=== PATIENT | male | born 1950 | race Caucasian/White ===

== ENCOUNTER 2016-02-24 15:17 | Emergency (ER) | payer MEDICARE ==
[2016-02-24 15:39] VITALS: RESP 18
[2016-02-24] MEDS ORDERED: SODIUM CHLORIDE 0.9% 1,000 ML IV ONE (15:57)
--- NOTE | 2016-02-24 16:02 | ED ---
General Adult HPI - General Chief complaint: Altered Mental Status Stated complaint: HYPERTENSION Time Seen by Provider: 02/24/16 15:35 Source: patient, RN notes reviewed Mode of arrival: EMS Limitations: no limitations - History of Present Illness Initial comments: This is a 66-year-old male has a past medical history significant for high blood pressure. Patient states he donated blood about 1 week ago and usually feels under the weather for a few days but he felt okay this morning so for the first time in 8 years she went for a bike ride with a group of people and went 8 miles up and down hills. Patient states when he got home he started having a couple coffee and called some of his relative to wish to my have been year. Patient states when he called his daughter he was unable to remember what he did on or his birthday which was on the . Patient states he felt as though he lost a few weeks and he was unable to even remember some a simple things EMS metal riveter told him to return member. Patient states once he got here and some oxygen and resting he remembers everything his birthday even the questions EMS asked him. Patient states he does still feel little bit tired but feels much better than he did earlier. She denies any recent fever chills or cough. Patient denies headache patient denies numbness weakness. Patient denies chest pain palpitations difficulty breathing or shortness of breath per patient denies abdominal pain patient denies nausea vomiting diarrhea. - Related Data Home Medications Medication Instructions Recorded Confirmed Lisinopril [Zestril] 20 mg PO DAILY 02/24/16 02/24/16 Multivitamins, Thera [Multivitamin] 1 tab PO DAILY 02/24/16 02/24/16 Allergies Allergy/AdvReac Type Severity Reaction Status Date / Time No Known Allergies Allergy Verified 02/24/16 15:45 Review of Systems ROS Statement: Those systems with pertinent positive or pertinent negative responses have been documented in the HPI. ROS Other: All systems not noted in ROS Statement are negative. Past Medical History Past Medical History: Hypertension Additional Past Medical History / Comment(s): Shingles History of Any Multi-Drug Resistant Organisms: None Reported Past Surgical History: No Surgical Hx Reported Past Psychological History: No Psychological Hx Reported Smoking Status: Former smoker Past Alcohol Use History: Occasional Past Drug Use History: None Reported General Exam - General Exam Comments Initial Comments: GENERAL: Patient is well-developed and well-nourished. Patient is nontoxic and well- hydrated and is in no acute distress. ENT: Neck is soft and supple. No significant lymphadenopathy is noted. Oropharynx is clear. Moist mucous membranes. Neck has full range of motion without eliciting any pain. EYES: The sclera were anicteric and conjunctiva were pink and moist. Extraocular movements were intact and pupils were equal round and reactive to light. Eyelids were unremarkable. PULMONARY: Unlabored respirations. Good breath sounds bilaterally. No audible rales rhonchi or wheezing was noted. CARDIOVASCULAR: There is a regular rate and rhythm without any murmurs gallops or rubs. ABDOMEN: Soft and nontender with normal bowel sounds. No palpable organomegaly was noted. There is no palpable pulsatile mass. SKIN: Skin is clear with no lesions or rashes and otherwise unremarkable. NEUROLOGIC: Patient is alert and oriented x3. Cranial nerves II through XII are grossly intact. Motor and sensory are also intact. Normal speech, volume and content. Symmetrical smile. MUSCULOSKELETAL: Normal extremities with adequate strength and full range of motion. No lower extremity swelling or edema. No calf tenderness. LYMPHATICS: No significant lymphadenopathy is noted PSYCHIATRIC: Normal psychiatric evaluation. Normal interpersonal interactions appears functionally intact in deals appropriately with others. No signs of depression. No signs of anxiety. Limitations: no limitations Course Vital Signs 02/24/16 02/24/16 02/24/16 15:36 16:18 17:13 Temperature 97.7 F Pulse Rate 97 81 77 Respiratory 18 18 18 Rate Blood Pressure 183/87 146/69 146/72 O2 Sat by Pulse 98 99 99 Oximetry 02/24/16 18:09 Temperature Pulse Rate 80 Respiratory 18 Rate Blood Pressure 153/76 O2 Sat by Pulse 99 Oximetry Medical Decision Making - Medical Decision Making EKG shows normal sinus rhythm at 71 bpm. On a 38 QRS is 76 QT interval 370 QTC is 410. Patient's EKG shows no ST segment elevation or depression or T-wave abnormality is noted. Patient back to his normal baseline he is able to and that without problems remember all events clearly. I spoke with the patient about following up his family doctor he stated that he would and he did not want to be kept in the hospital overnight. - Lab Data Result diagrams: 02/24/16 15:44 01/01/17 15:44 Lab Results 02/24/16 02/24/16 02/24/16 Range/Units 15:44 15:44 15:44 WBC 11.2 H (3.8-10.6) k/uL RBC 4.49 (4.30-5.90) m/uL Hgb 12.1 L (13.0-17.5) gm/dL Hct 39.9 (39.0-53.0) % MCV 89.0 (80.0-100.0) fL MCH 26.9 (25.0-35.0) pg MCHC 30.2 L (31.0-37.0) g/dL RDW 15.1 (11.5-15.5) % Plt Count 217 (150-450) k/uL Neutrophils % 84 % Lymphocytes % 8 % Monocytes % 6 % Eosinophils % 0 % Basophils % 0 % Neutrophils # 9.3 H (1.3-7.7) k/uL Lymphocytes # 0.9 L (1.0-4.8) k/uL Monocytes # 0.7 (0-1.0) k/uL Eosinophils # 0.0 (0-0.7) k/uL Basophils # 0.1 (0-0.2) k/uL PT (9.0-12.0) sec INR (<1.1) APTT (22.0-30.0) sec Sodium 142 (137-145) mmol/L Potassium 5.0 (3.5-5.1) mmol/L Chloride 107 (98-107) mmol/L Carbon Dioxide 23 (22-30) mmol/L Anion Gap 12 mmol/L BUN 16 (9-20) mg/dL Creatinine 1.05 (0.66-1.25) mg/dL Est GFR (MDRD) Af Amer >60 (>60 ml/min/1.73 sqM) Est GFR (MDRD) Non-Af >60 (>60 ml/min/1.73 sqM) Glucose 92 (74-99) mg/dL Calcium 9.7 (8.4-10.2) mg/dL Total Bilirubin 0.5 (0.2-1.3) mg/dL AST 33 (17-59) U/L ALT 45 (21-72) U/L Alkaline Phosphatase 59 (38-126) U/L Total Creatine Kinase 354 H (55-170) U/L CK-MB (CK-2) 4.7 H* (0.0-2.4) ng/mL CK-MB (CK-2) Rel Index 1.3 Troponin I 0.025 (0.000-0.034) ng/mL Total Protein 7.4 (6.3-8.2) g/dL Albumin 4.2 (3.5-5.0) g/dL Urine Color Urine Appearance (Clear) Urine pH (5.0-8.0) Ur Specific [place] (1.001-1.035) Urine Protein (Negative) Urine Glucose (UA) (Negative) Urine Ketones (Negative) Urine Blood (Negative) Urine Nitrate (Negative) Urine Bilirubin (Negative) Urine Urobilinogen (<2.0) mg/dL Ur Leukocyte Esterase (Negative) 02/24/16 02/24/16 Range/Units 15:44 18:42 WBC (3.8-10.6) k/uL RBC (4.30-5.90) m/uL Hgb (13.0-17.5) gm/dL Hct (39.0-53.0) % MCV (80.0-100.0) fL MCH (25.0-35.0) pg MCHC (31.0-37.0) g/dL RDW (11.5-15.5) % Plt Count (150-450) k/uL Neutrophils % % Lymphocytes % % Monocytes % % Eosinophils % % Basophils % % Neutrophils # (1.3-7.7) k/uL Lymphocytes # (1.0-4.8) k/uL Monocytes # (0-1.0) k/uL Eosinophils # (0-0.7) k/uL Basophils # (0-0.2) k/uL PT 10.5 (9.0-12.0) sec INR 1.0 (<1.1) APTT 21.9 L (22.0-30.0) sec Sodium (137-145) mmol/L Potassium (3.5-5.1) mmol/L Chloride (98-107) mmol/L Carbon Dioxide (22-30) mmol/L Anion Gap mmol/L BUN (9-20) mg/dL Creatinine (0.66-1.25) mg/dL Est GFR (MDRD) Af Amer (>60 ml/min/1.73 sqM) Est GFR (MDRD) Non-Af (>60 ml/min/1.73 sqM) Glucose (74-99) mg/dL Calcium (8.4-10.2) mg/dL Total Bilirubin (0.2-1.3) mg/dL AST (17-59) U/L ALT (21-72) U/L Alkaline Phosphatase (38-126) U/L Total Creatine Kinase (55-170) U/L CK-MB (CK-2) (0.0-2.4) ng/mL CK-MB (CK-2) Rel Index Troponin I (0.000-0.034) ng/mL Total Protein (6.3-8.2) g/dL Albumin (3.5-5.0) g/dL Urine Color Light Yellow Urine Appearance Clear (Clear) Urine pH 6.5 (5.0-8.0) Ur Specific [place] 1.010 (1.001-1.035) Urine Protein Negative (Negative) Urine Glucose (UA) Negative (Negative) Urine Ketones 1+ H (Negative) Urine Blood Negative (Negative) Urine Nitrate Negative (Negative) Urine Bilirubin Negative (Negative) Urine Urobilinogen <2.0 (<2.0) mg/dL Ur Leukocyte Esterase Negative (Negative) Disposition Clinical Impression: Fatigue, Transient global amnesia Disposition: HOME SELF-CARE Instructions: Fatigue (ED), Transient Global Amnesia (ED) Referrals: Warner Stern MD [Primary Care Provider] - 1-2 days Time of Disposition: 19:08
[2016-02-24 16:11] LABS: Basophils # (A) 0.1 k/uL (0-0.2); Basophils % (A) 0 %; CH 28.4; Eosinophils % (A) 0 %; HCT 39.9 % (39.0-53.0); HDW 2.58; HGB 12.1 gm/dL (13.0-17.5); Luc # (Auto) 0.17; Luc % (Auto) 2; Lymphocytes # (A) 0.9 k/uL (1.0-4.8); Lymphocytes % (A) 8 %; MCH 26.9 pg (25.0-35.0); MCHC 30.2 g/dL (31.0-37.0); Mean Platelet Volume 7.7; Monocytes # (A) 0.7 k/uL (0-1.0); Monocytes % (A) 6 %; Neutrophils # (A) 9.3 k/uL (1.3-7.7); Neutrophils % (A) 84 %; RBC 4.49 m/uL (4.30-5.90); RDW 15.1 % (11.5-15.5); WBC 11.2 k/uL (3.8-10.6); WBC (Perox) 11.69
[2016-02-24 16:23] LABS: ALT 45 U/L (21-72); AST 33 U/L (17-59); Alkaline Phosphatase 59 U/L (38-126); Anion Gap 12 mmol/L; Blood Urea Nitrogen 16 mg/dL (9-20); Calcium 9.7 mg/dL (8.4-10.2); Carbon Dioxide 23 mmol/L (22-30); Chloride 107 mmol/L (98-107); Glucose 92 mg/dL (74-99); Non-African American GFR(MDRD) >60 (>60 ml/min/1.73 sqM); Sodium 142 mmol/L (137-145); Total Bilirubin 0.5 mg/dL (0.2-1.3); Total Protein 7.4 g/dL (6.3-8.2)
[2016-02-24 16:29] LABS: Partial Thromboplastin Time 21.9 sec (22.0-30.0); Prothrombin Time 10.5 sec (9.0-12.0)
[2016-02-24 16:49] LABS: Troponin I 0.025 ng/mL (0.000-0.034)
--- NOTE | 2016-02-24 16:52 | XR ---
EXAMINATION TYPE: XR chest 2V DATE OF EXAM: 02/24/2016 4:48 PM COMPARISON: NONE HISTORY: Dizziness and hypertension TECHNIQUE: Frontal and lateral views of the chest are obtained. FINDINGS: There is a large hiatal hernia. Lungs are clear of consolidation. There are small calcifie d granulomata in both lungs. There are no hilar masses. Heart size is normal. Costophrenic angles are clear. Bony thorax is intact. IMPRESSION: Healed granulomatous disease. No active cardiopulmonary disease.
[2016-02-24 16:56] LABS: Creatine Kinase MB 4.7 ng/mL (0.0-2.4)
--- NOTE | 2016-02-24 17:20 | CT ---
EXAMINATION TYPE: CT brain wo con DATE OF EXAM: 02/24/2016 5:09 PM COMPARISON: NONE HISTORY: Hypertension and confusion. CT DLP: 1112.40 mGycm Automated exposure control for dose reduction was used. FINDINGS: The ventricles are of normal size. There is no mass effect nor midline shift. There is no sign of int racranial hemorrhage. Calvarium is intact. There is a mucous retention cyst in the floor of right max illary sinus. IMPRESSION: Negative CT scan of the brain.
[2016-02-24 19:04] LABS: Appearance,Urine Clear (Clear); Bilirubin,Urine Negative (Negative); Glucose,Urine (UA) Negative (Negative); Ketones,Urine 1+ (Negative); Leukocyte Esterase,Urine Negative (Negative); Nitrite,Urine Negative (Negative); PH, Urine 6.5 (5.0-8.0); Protein,Urine Negative (Negative); UA Billing (MACRO vs. MICRO) CHEM; Urobilinogen,Urine <2.0 mg/dL (<2.0)
[2016-02-24 19:28] VITALS: BP 147/78; PULSE 81; TEMP 98
== END 2016-02-24 19:27 | disposition home or self-care (01) ==
LOC: EC 15:17
DX: G45.4 Transient global amnesia (principal); R53.83 Other fatigue; I10 Essential (primary) hypertension; Z79.899 Other long term (current) drug therapy; Z87.891 Personal history of nicotine dependence
CPT/HCPCS: 36415; 70450; 71020; 80053; 80306; 81003; 82550; 82553; 84484; 85025; 85610; 85730; 93005; 96360; 99285

== ENCOUNTER → 2016-03-19 | Outpatient (CLI) | payer MEDICARE ==
--- NOTE | 2016-03-19 15:46 | US ---
EXAMINATION TYPE: US carotid duplex BILAT DATE OF EXAM: 03/19/2016 3:07 PM COMPARISON: NONE CLINICAL HISTORY: TIA G45.9. patient stated was vigorously exercising, with no food or fluids for 12 hours, and had episode of slurred speech, disorientation, memory loss; TGA diagnosis per patient HX; prior pipe smoker. EXAM MEASUREMENTS: RIGHT: Peak Systolic Velocity (PSV) cm/sec ----- Right CCA: 69.0 ----- Right ICA: 85.4 ----- Right ECA: 110.6 ICA/CCA ratio: 1.2 RIGHT: End Diastole cm/sec ----- Right CCA: 15.9 ----- Right ICA: 18.4 ----- Right ECA: 22.2 LEFT: Peak Systolic Velocity (PSV) cm/sec ----- Left CCA: 79.1 ----- Left ICA: 91.5 ----- Left ECA: 123.8 ICA/CCA ratio: 1.2 LEFT: End Diastole cm/sec ----- Left CCA: 22.2 ----- Left ICA: 31.7 ----- Left ECA: 22.0 VERTEBRALS (direction of flow): Right Vertebral: Antegrade Left Vertebral: Antegrade and appears dominant in size comparison TECHNOLOGIST IMPRESSION: Mild to moderate intimal wall changes noted at bilateral carotid bifurcatio n, but PSV is within normal limits bilaterally. Mild atheromatous plaque is present. IMPRESSION: No hemodynamic significant stenosis of the proximal internal carotid arteries bilaterall y by Doppler criteria, and indirect measurement of carotid stenosis
--- NOTE | 2016-03-19 16:51 | ECHOF ---
Referral Reason:TIA G45.9 MEASUREMENTS -------- HEIGHT: 152.4 cm WEIGHT: 95.3 kg BP: RVIDd: 3.4 cm (< 3.3) IVSd: 1.2 cm (0.6 - 1.1) LVIDd: 4.3 cm (3.9 - 5.3) LVPWd: 1.3 cm (0.6 - 1.1) IVSs: 1.5 cm LVIDs: 2.6 cm LVPWs: 1.5 cm LA Diam: 3.7 cm (2.7 - 3.8) LAESV Index (A-L): 27.31 ml/m Ao Diam: 3.6 cm (2.0 - 3.7) AV Cusp: 2.3 cm (1.5 - 2.6) LA Diam: 4.4 cm (2.7 - 3.8) MV EXCURSION: 9.718 mm (> 18.000) MV EF SLOPE: 43 mm/s (70 - 150) EPSS: 0.4 cm MV E Fidel: 0.33 m/s MV A Fidel: 0.69 m/s MV E/A Ratio: 0.47 RAP: 5.00 mmHg RVSP: 38.78 mmHg FINDINGS -------- Sinus rhythm. This was a technically good study. There is mild concentric left ventricular hypertrophy. Overall left ventricular systolic function is low-normal with, an EF between 50 - 55 %. The right ventricle is normal in size. The left atrial size is normal. The right atrial size is normal. There is mild aortic valve sclerosis. There is no evidence of aortic regurgitation. Mild mitral annular calcification present. Mild mitral regurgitation is present. Mild tricuspid regurgitation present. There is no evidence of pulmonary hypertension. The right ventricular systolic pressure, as measured by Doppler, is 38.78mmHg. There is no pulmonic regurgitation present. The aortic root size is normal. There is no pericardial effusion. CONCLUSIONS -------- 1. There is mild concentric left ventricular hypertrophy. 2. Overall left ventricular systolic function is low-normal with, an EF between 50 - 55 %. 3. There is mild aortic valve sclerosis. 4. Mild mitral annular calcification present. 5. Mild mitral regurgitation is present. 6. Mild tricuspid regurgitation present. 7. There is no evidence of pulmonary hypertension. 8. The right ventricular systolic pressure, as measured by Doppler, is 38.78mmHg. EMERGENCY VETERINARY ASSISTANT: Mindy Ron RDCS
== END | disposition home or self-care (01) ==
LOC: RADECHMAIN 13:38
PROVIDERS: ATTEND Family Medicine
DX: G45.9 Transient cerebral ischemic attack, unspecified (principal)
CPT/HCPCS: 93306; 93880

== ENCOUNTER → 2018-04-01 | Outpatient (CLI) | payer MEDICARE ==
--- NOTE | 2018-04-01 10:28 | MR ---
EXAMINATION TYPE: MR knee LT wo con DATE OF EXAM: 04/01/2018 COMPARISON: None HISTORY: Left knee pain TECHNIQUE: Multiplanar, multisequence imaging of the left knee is performed without IV contrast. FINDINGS: MEDIAL MENISCUS: There is a longitudinal tear through the medial meniscus with complex tear of the po sterior horn of the medial meniscus. There is associated meniscal extrusion of approximately 3 mm. LATERAL MENISCUS: There is an oblique tear of the body of the lateral meniscus extending into the pos terior horn at the undersurface. CRUCIATE LIGAMENTS: The anterior and posterior cruciate ligaments are intact although there is slight increased signal of the anterior cruciate ligament compatible low-grade injury. COLLATERAL LIGAMENTS: The medial collateral ligament and lateral collateral ligament complex are inta ct and unremarkable. EXTENSOR MECHANISM: Visualized quadriceps and patellar tendons are intact. Minimal increased signal s een at the insertional fibers of the quadriceps muscle. EFFUSION: No significant suprapatellar joint effusion. POPLITEAL CYST: Small popliteal cyst is multiloculated. TRICOMPARTMENT SPACES: There is severe medial compartment joint space narrowing with [id number] art iculation and resultant bone marrow edema measuring 2.5 x 2.0 cm involving greater than 50% of the la teral tibial plateau. There are small tricompartmental marginal osteophytes present. There is joint s pace narrowing of the patellofemoral compartment. CARTILAGE: There is full-thickness cartilaginous loss of the medial tibial plateau at the weightbeari ng surface measuring 1.8 cm. There is near complete cartilaginous loss of the medial femoral condyle and at the opposing surface with diffuse signal heterogeneity. Within the lateral compartment there i s mild signal heterogeneity throughout the cartilage without full-thickness or partial-thickness cart ilaginous defect. Within the patellofemoral compartment there is slight cartilaginous thinning with l ateral trochlear cartilage full-thickness defect measuring 1.2 cm. No underlying bone marrow edema at this time. BONE MARROW SIGNAL: No focal abnormal marrow signal is appreciated. OTHER: Mild suprapatellar, infrapatellar and prepatellar subcutaneous edema is noted. IMPRESSION: 1. Full-thickness cartilaginous defect of the tibial plateau with severe medial compartment joint spa ce loss and [id number] articulation of the medial compartment with resultant large tibial plateau 2 .5 x 2.0 cm area of bone marrow edema. 2. Longitudinal tear through the medial meniscus with complex tear of the posterior horn and associat ed 3 mm of meniscal extrusion. 3. Oblique tear of the body of the lateral meniscus extending into the undersurface of the posterior horn. 4. Slight increased signal throughout the anterior cruciate ligament compatible with low-grade strain . 5. Overall moderate tricompartmental chondrosis. 6. Minimal increased signal in the insertional fibers of the quadriceps tendon pedicle with mild inse rtional tendinosis.
== END | disposition home or self-care (01) ==
LOC: RADMRIMAIN 07:42
PROVIDERS: ATTEND Orthopaedic Surgery
DX: S83.242A Other tear of medial meniscus, current injury, left knee, initial encounter (principal); S83.282A Other tear of lateral meniscus, current injury, left knee, initial encounter; S83.512A Sprain of anterior cruciate ligament of left knee, initial encounter; M77.9 Enthesopathy, unspecified

== ENCOUNTER → 2018-04-13 | Outpatient (CLI) | payer MEDICARE ==
[2018-04-13 11:07] LABS: Basophils # (A) 0.1 k/uL (0-0.2); Basophils % (A) 1 %; Eosinophils # (A) 0.4 k/uL (0-0.7); Eosinophils % (A) 7 %; HCT 51.1 % (39.0-53.0); HGB 16.5 gm/dL (13.0-17.5); Lymphocytes % (A) 18 %; MCH 32.4 pg (25.0-35.0); MCHC 32.2 g/dL (31.0-37.0); MCV 100.5 fL (80.0-100.0); Macrocytosis Slight; Mean Platelet Volume 6.9; Monocytes # (A) 0.7 k/uL (0-1.0); Monocytes % (A) 12 %; Neutrophils # (A) 3.4 k/uL (1.3-7.7); Neutrophils % (A) 60 %; Platelet Count 207 k/uL (150-450); RBC 5.09 m/uL (4.30-5.90); RDW 14.2 % (11.5-15.5); WBC 5.6 k/uL (3.8-10.6)
[2018-04-13 11:28] LABS: Potassium 5.3 mmol/L (3.5-5.1)
== END | disposition home or self-care (01) ==
LOC: LABPAT 09:42
PROVIDERS: ATTEND Orthopaedic Surgery
DX: Z01.812 Encounter for preprocedural laboratory examination (principal); Z01.818 Encounter for other preprocedural examination; M23.92 Unspecified internal derangement of left knee
CPT/HCPCS: 36415; 80051; 85025; 93005

== ENCOUNTER 2018-04-21 09:02 | Day surgery (SDC) | payer MEDICARE ==
[2018-04-16 14:27] VITALS: BMI 28.4
--- NOTE | 2018-04-20 13:33 | HP ---
HISTORY AND PHYSICAL Surgery is scheduled for 04/21/2018. 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 We discussed options. He elected to proceed with arthroscopy. Consent regarding the procedure was obtained. PAST MEDICAL HISTORY: Hypertension. PAST SURGICAL HISTORY: Noncontributory. DAILY MEDICATIONS: Lisinopril. ALLERGIES: None. SOCIAL HISTORY: He denies current tobacco use. PHYSICAL EVALUATION OF THE LEFT KNEE: His range of motion is 0 to 130 degrees. There is a mild effusion. There is tenderness along the medial joint line. Positive medial Stalin's. A +2 Salvador, endpoint collateral ligaments appear stable. Hip rotation without pain. Distal neurovascular exam intact. Radiographs of the left knee revealed moderate osteoarthritic changes. A left knee MRI revealed medial and lateral meniscal tears. IMPRESSION: Internal derangement left knee with medial and lateral meniscal tears. PLAN: Left knee arthroscopy with partial meniscectomy and debridement. MMODL / IJN: [id number] /
[~2018-04-21 09:02] MED LIST: DEXAMETHASONE SOD PHOSPHATE 10 MG/ML 1 ML VIAL IV ONE; HYDROmorphone 0.5 MG/0.5 ML SYRINGE IVP PRN; LACTATED RINGERS 1,000 ML IV SCH; LIDOCAINE 1% 20 ML VIAL (10MG/ML) FOR IV START INTRADERMA PRN; MIDAZOLAM (PF) 2 MG/2 ML VIAL IV PRN; ONDANSETRON 4 MG/2 ML VIAL IVP ONE; SCOPOLAMINE 1.5MG/72HR PATCH TRANSDERM ONE; ceFAZolin IN SWFI 2 GM/20 ML SYRINGE IVP ONE
[2018-04-21] MEDS ORDERED: LIDOCAINE 1% INJ 10MG/ML (20 ML MDV) ONE (10:43)
[2018-04-21] MEDS ORDERED: PROPOFOL 10 MG/ML 20 ML VIAL IV ONE (10:43)
[2018-04-21] MEDS ORDERED: fentaNYL (PF) 50 MCG/ML 2 ML AMP ONE (10:43)
[2018-04-21] MEDS ORDERED: MIDAZOLAM 2 MG/2 ML VIAL ONE (10:43)
[2018-04-21] MEDS ORDERED: BUPIVACAINE (PF) 0.25% 30 ML VIAL INTRAARTIC ONE (10:50)
--- NOTE | 2018-04-21 11:41 | P.OP ---
Date of Procedure: 04/21/18 Preoperative Diagnosis: Internal derangement left knee Postoperative Diagnosis: 1. Medial meniscal tear left knee 2. Grade 2 chondromalacia medial femoral condyle left knee 3. Reactive synovitis medial, lateral and suprapatellar compartments left knee Procedure(s) Performed: 1. Arthroscopic partial medial meniscectomy left knee 2. Arthroscopic chondroplasty medial femoral condyle left knee 3. Arthroscopic partial synovectomy medial, lateral and suprapatellar compartments left knee Anesthesia: GETA, local Surgeon: Yasmany Frank Estimated Blood Loss (ml): 5 Pathology: none sent Condition: stable Disposition: PACU Indications for Procedure: 68-year-old patient seen with progressive left knee pain. After treatment options were discussed, he elected to proceed with arthroscopy. Operative Findings: see description of procedure Description of Procedure: Patient was taken to the operative suite. Patient underwent a general anesthetic by the department of anesthesia. Patient was given preoperative antibiotics. The left lower extremity was placed in a well-padded arthroscopic leg davis. The left leg was prepped and draped in the normal sterile orthopedic fashion. A lateral parapatellar and suprapatellar incision was made. Trochars were inserted. Arthroscopy was initiated. Suprapatellar pouch revealed diffuse thick reactive synovitis. The patellofemoral joint appeared to articulate congruently. There was grade 1 chondromalacia of the patella, no osteochondral tears were present.. The scope was guided into the medial gutter. No loose bodies or plica were identified. The scope was then guided into the medial compartment. A medial parapatellar incision was made. Trocar inserted followed by probe. As a complex tear involving the mid body and posterior horn medial meniscus. There were grade 2 chondromalacia changes of the medial femoral condyle with some osteochondral tears present. There was thick reactive synovitis anteriorly. I performed a partial medial meniscectomy down to stable tissue. I performed a chondroplasty of the medial femoral condyle down to stable tissue. I performed a partial synovectomy decompressing the thick reactive synovitis. There was an area of grade 4 chondromalacia of the medial tibial plateau with some bone exposure but no osteochondral tears were present. The residual meniscus was stable. The residual osteochondral surface of the medial femoral condyle was stable. There was good decompression of the synovitis. Scope and probe were then guided into the intercondylar notch. Cruciates were identified, probed and found to be stable. The scope and probe were then guided into lateral compartment. Was some fraying superficially midbody lateral meniscus. There was some thick reactive synovitis anteriorly. There was no significant chondromalacia present. I debrided those frayed margins with a motorized shaver. I performed a partial synovectomy decompressing the reactive synovitis lateral compartment. There was good decompression of the synovitis. The scope was in guided back into the suprapatellar compartment. I introduced a motorized shaver into the super patellar compartment. I debrided some piecemeal fragments of meniscus I encountered. I performed a partial synovectomy decompressing the thick reactive synovitis. The shaver was removed. I took one more look around the entire knee, no residual debris. Instruments were now removed from the joint. The joint was infiltrated with .25% Marcaine. Steri-Strips were applied to the portal sites. Sterile dressings were applied. The patient was placed into a CAROLE hose. No tourniquet was utilized. The patient was awakened, transferred to a bed and taken to recovery stable satisfactory condition.
[2018-04-21 11:51] VITALS: TEMP 96.8
[2018-04-21 12:12] VITALS: RESP 18
[2018-04-21 13:04] VITALS: BP 138/75; PULSE 81
== END 2018-04-21 13:32 | disposition home or self-care (01) ==
LOC: OR 09:02
PROVIDERS: ATTEND Orthopaedic Surgery
DX: S83.242A Other tear of medial meniscus, current injury, left knee, initial encounter (principal); X58.XXXA Exposure to other specified factors, initial encounter; M65.862 Other synovitis and tenosynovitis, left lower leg; M22.42 Chondromalacia patellae, left knee; I10 Essential (primary) hypertension; Z87.891 Personal history of nicotine dependence; Z79.899 Other long term (current) drug therapy
CPT/HCPCS: 84132; 29881; J2250; J1100; J2405; J2001; J3010; J2704; J0690

== ENCOUNTER 2022-07-08 10:57 | Day surgery (SDC) | payer MEDICARE ==
[~2022-07-08 10:57] MED LIST changes: -DEXAMETHASONE SOD PHOSPHATE 10 MG/ML 1 ML VIAL IV ONE; -HYDROmorphone 0.5 MG/0.5 ML SYRINGE IVP PRN; +LIDOCAINE 1% (10MG/ML) FOR IV START INTRADERMA PRN; -LIDOCAINE 1% 20 ML VIAL (10MG/ML) FOR IV START INTRADERMA PRN; -MIDAZOLAM (PF) 2 MG/2 ML VIAL IV PRN; -ONDANSETRON 4 MG/2 ML VIAL IVP ONE; -SCOPOLAMINE 1.5MG/72HR PATCH TRANSDERM ONE; -ceFAZolin IN SWFI 2 GM/20 ML SYRINGE IVP ONE
[2022-07-08 11:18] VITALS: TEMP 97.3
[2022-07-08] MEDS ORDERED: LIDOCAINE 2% INJ 20 MG/ML (2 ML VIAL) ONE (11:40)
[2022-07-08] MEDS ORDERED: PROPOFOL 10 MG/ML 20 ML VIAL IV ONE (11:40)
--- NOTE | 2022-07-08 11:43 | P.GSHP ---
History of Present Illness H&P Date: 07/08/22 Chief Complaint: Dysphagia 72-year-old male here for upper endoscopy. Patient with history of previous EGD showing moderate sized hiatal hernia and stricture. He did well after dilation previously. Recently has had increased dysphagia symptoms. Past Medical History Past Medical History: Eye Disorder, GERD/Reflux, Hyperlipidemia, Hypertension Additional Past Medical History / Comment(s): Food gets "stuck", glaucoma bilaterally, occasionally wheezy since starting eyegtts 2 yrs ago History of Any Multi-Drug Resistant Organisms: None Reported Past Surgical History: Orthopedic Surgery Additional Past Surgical History / Comment(s): EGD/esophageal implant/dilation, L knee arthroscopy, colonoscopies Past Anesthesia/Blood Transfusion Reactions: No Reported Reaction Additional Past Anesthesia/Blood Transfusion Reaction / Comment(s): Pt has never received blood. Smoking Status: Former smoker - Past Family History Mother History Unknown: Yes Family Medical History: No Reported History Additional Family Medical History / Comment(s): Pt is adopted. Medications and Allergies Home Medications Medication Instructions Recorded Confirmed Type Dorzolamide 2% [Trusopt 2%] 1 drops BOTH EYES BID 07/03/22 07/08/22 History Irbesartan 300 mg PO QAM 07/03/22 07/03/22 History Rosuvastatin [Crestor] 10 mg PO QAM 07/03/22 07/03/22 History Allergies Allergy/AdvReac Type Severity Reaction Status Date / Time No Known Allergies Allergy Verified 07/08/22 11:09 Surgical - Exam Vital Signs Temp Pulse Resp BP Pulse Ox 97.3 F L 97 18 170/86 98 07/08/22 11:16 07/08/22 11:16 07/08/22 11:16 07/08/22 11:16 07/08/22 11:16 Physical exam: General: Well-developed, well-nourished HEENT: Normocephalic, sclerae nonicteric Abdomen: Nontender, nondistended Extremities: No edema Neuro: Alert and oriented Assessment and Plan (1) Dysphagia Narrative/Plan: Will proceed with upper endoscopy and possible dilation Current Visit: Yes Status: Acute Code(s): R13.10 - DYSPHAGIA, UNSPECIFIED SNOMED Code(s): 76506797
--- NOTE | 2022-07-08 12:01 | P.PCN ---
Date of Procedure: 07/08/22 Procedure(s) Performed: Preoperative Dx: GERD, dysphagia Postoperative Dx: Esophageal stricture, hiatal hernia, gastritis, gastric polyp Procedure: EGD with Bx and dilation Anesthesia: Sedation Endoscopist: Dr. Hoffman Specimens: Gastric polyp, antrum Endoscopic Procedure: The patient was on the endoscopy table in the left decubitus position. The Olympus gastroscope was inserted into the oropharynx and passed under direct visualization to the region of the third portion of the duodenum. From that point the scope was slowly withdrawn inspecting all surfaces carefully. There were no neoplastic inflammatory or polypoid lesions throughout the duodenum. The pylorus was widely patent. The stomach was carefully inspected. There was mild gastritis present. A polyp in the upper stomach was biopsied. Retroflexion revealed a moderate to large size hiatal hernia. The GE junction was present 5 m above the diaphragmatic hiatus. I would estimate 20% of the stomach was above the diaphragm. At the GE junction itself there was a chronic stricture formation. Given the patient's complaints of dysphagia we decided to proceed with dilation. The stricture was dilated sequentially from 12-13.5-15-16.5-18 mm without difficulty. No mucosal tears were seen. The remainder the esophagus appear normal.. A biopsy of the antrum took place to rule out H. pylori. Retroflexion revealed a normal hiatus. The esophagus was then carefully examined. There were no neoplastic inflammatory or polypoid lesions throughout the visualized esophagus. The patient was then taken to the recovery room in stable condition per anesthesia guidelines. Recommendations: Await biopsy results. Monitor complaints of dysphagia. Recommend daily antiacid therapy
[2022-07-08 12:06] VITALS: RESP 16
[2022-07-08 12:22] VITALS: BP 132/76; PULSE 76
== END 2022-07-08 12:47 | disposition home or self-care (01) ==
LOC: ORWHC2ENDO 10:57
PROVIDERS: ATTEND Surgery
DX: K44.9 Diaphragmatic hernia without obstruction or gangrene (principal); K31.1 Adult hypertrophic pyloric stenosis; K31.7 Polyp of stomach and duodenum; K31.89 Other diseases of stomach and duodenum; K21.9 Gastro-esophageal reflux disease without esophagitis; I10 Essential (primary) hypertension; E78.5 Hyperlipidemia, unspecified; Z98.890 Other specified postprocedural states; Z87.891 Personal history of nicotine dependence; Z79.899 Other long term (current) drug therapy
CPT/HCPCS: 88305; 43249; 43239; J2704; J2001; C1726 ×2

== ENCOUNTER 2022-07-18 10:35 | Emergency (ER) | payer MEDICARE ==
[2022-07-18] MEDS ORDERED: MORPHINE SULFATE 4 MG/ML SYRINGE IV STA (11:04)
[2022-07-18] MEDS ORDERED: BACITRACIN OINT 1 EACH PACKET TOPICAL ONE (11:06)
[2022-07-18] MEDS ORDERED: DIPH,PERTUS(ACELL)TETVAC-LF 0.5 ML VIAL IM ONE (11:06)
--- NOTE | 2022-07-18 11:14 | ED ---
Fall HPI - General Chief Complaint: Fall Stated Complaint: Fall, Head injury Time Seen by Provider: 07/18/22 10:54 Source: patient, family Mode of arrival: ambulatory - History of Present Illness Initial Comments: Nontoxic-appearing 72-year-old male, alert and oriented x4, presents ambulatory with complaints of tripping and falling down 12 stairs into the basement approximately 2 hours ago. Denies any loss of consciousness. Denies any blood thinners. States he hit his head, has mid/lower back, left sided hip, elbow and rib pain. Family at bedside states she observed him fall and states "he did cart wheels down the stairs". Has been ambulatory since. No nausea or vom iting. Does have a history of GERD, hypertension, glaucoma and hyperlipidemia. 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 Fall Witnessed: yes, by family Place Fall Occurred: home Loss of Consciousness: none Prolonged Down Time?: no Symptoms Prior to Fall: none Location: head, chest, back, other (hip left) Location - Extremities: Left: Elbow Severity scale (1-10): 7 Quality: aching Context: tripped/slipped - Related Data Home Medications Medication Instructions Recorded Confirmed Dorzolamide 2% [Trusopt 2%] 1 drops BOTH EYES BID 07/03/22 07/08/22 Irbesartan 300 mg PO QAM 07/03/22 07/03/22 Rosuvastatin [Crestor] 10 mg PO QAM 07/03/22 07/03/22 Previous Rx's Medication Instructions Recorded Omeprazole [PriLOSEC] 20 mg PO AC-BRKFST #90 cap 07/08/22 Allergies Allergy/AdvReac Type Severity Reaction Status Date / Time No Known Allergies Allergy Verified 07/18/22 10:53 Review of Systems ROS Statement: Those systems with pertinent positive or pertinent negative responses have been documented in the HPI. ROS Other: All systems not noted in ROS Statement are negative. Past Medical History Past Medical History: Eye Disorder, GERD/Reflux, Hyperlipidemia, Hypertension Additional Past Medical History / Comment(s): Food gets "stuck", glaucoma bilaterally, occasionally wheezy since starting eyegtts 2 yrs ago History of Any Multi-Drug Resistant Organisms: None Reported Past Surgical History: Orthopedic Surgery Additional Past Surgical History / Comment(s): EGD/esophageal implant/dilation, L knee arthroscopy, colonoscopies Past Anesthesia/Blood Transfusion Reactions: No Reported Reaction Additional Past Anesthesia/Blood Transfusion Reaction / Comment(s): Pt has never received blood. Past Psychological History: No Psychological Hx Reported Smoking Status: Former smoker Past Alcohol Use History: Daily Past Drug Use History: None Reported - Past Family History Mother History Unknown: Yes Family Medical History: No Reported History Additional Family Medical History / Comment(s): Pt is adopted. General Exam Limitations: no limitations General appearance: alert, in no apparent distress Head exam: Present: other (Abrasions right frontal, hematoma right parietal) Expanded Head exam: Present: abrasion (Right frontal), contusion, hematoma (Right parietal). Absent: raccoon eyes, morales's sign Eye exam: Present: normal appearance, PERRL, EOMI. Absent: scleral icterus, conjunctival injection, periorbital swelling, periorbital tenderness ENT exam: Present: mucous membranes moist Neck exam: Present: full ROM. Absent: tenderness, meningismus Expanded Neck exam: Absent: midline deformity, anterior neck swelling, tracheal deviation Respiratory exam: Present: normal lung sounds bilaterally. Absent: respiratory distress, accessory muscle use Cardiovascular Exam: Present: regular rate GI/Abdominal exam: Present: soft. Absent: distended, guarding, rebound, rigid Extremities exam: Present: full ROM, normal capillary refill, other (Left elbow abrasions, full range of motion, negative Apley scratch test; no bruising or erythema or swelling noted to the left hip or flank. No bruising or abrasions to the back or chest). Absent: pedal edema, calf tenderness Back exam: Present: full ROM, paraspinal tenderness (Left lumbar sacral spine). Absent: CVA tenderness (R), CVA tenderness (L), vertebral tenderness, rash noted Neurological exam: Present: alert, oriented X3, CN II-XII intact, normal gait Expanded Patient oriented to: Present: person, place, time Speech: Present: fluid speech Cranial nerves: EOM's Intact: Normal, Gag Reflex: Normal, Tongue Deviation: Normal, Nystagmus: Normal Cerebellar function: Heel to Valentino: Normal, Romberg: Normal Motor strength exam: RUE: 5, LUE: 5, RLE: 5, LLE: 5 Eye Response: (4) open spontaneously Motor Response: (6) obeys commands Verbal Response: (5) oriented Ayaz Total: 15 Psychiatric exam: Present: normal affect, normal mood Skin exam: Present: warm, dry, normal color. Absent: cyanosis, diaphoretic, petechiae, pallor Course Vital Signs 07/18/22 07/18/22 07/18/22 10:50 12:09 13:02 Temperature 97.9 F 97.9 F 98.2 F Pulse Rate 60 56 L 51 L Respiratory 18 14 14 Rate Blood Pressure 160/83 150/87 127/77 O2 Sat by Pulse 99 96 98 Oximetry Medical Decision Making - Medical Decision Making Was pt. sent in by a medical professional or institution (, PA, HARDWARE ASSEMBLER, urgent care, hospital, or assisted...) When possible be specific @ -No Did you speak to anyone other than the patient for history (EMS, parent, family, police, friend...)? What history was obtained from this source @ -Daughter at bedside states she observed the fall. No loss of consciousness. Did you review nursing and triage notes (agree or disagree)? Why? @ -I reviewed and agree with nursing and triage notes Were old charts reviewed (outside hosp., previous admission, EMS record, old EKG, old radiological studies, urgent care reports/EKG's, assisted records)? Report findings @ -Chest x-ray redemonstrated hiatal hernia compared to 02/24/2016. Differential Diagnosis (chest pain, altered mental status, abdominal pain women, abdominal pain men, vaginal bleeding, weakness, fever, dyspnea, syncope, headache, dizziness, GI bleed, back pain, seizure, CVA, palpatations, mental health, musculoskeletal)? @ -Intracranial bleed, skull fracture, rib fractures, spinal fracture, EKG interpreted by me (3pts min.). @ -n/a X-rays interpreted by me (1pt min.). @ -Chest x-ray interpreted by me shows a large hiatal hernia. No focal consolidation. No evidence of rib fracture. X-ray of the left hip interpreted by me shows no evidence of fracture or dislocation. X-ray of the lumbar sacral spine interpreted by me shows no obvious fractures. Arterial vascular calcification noted. CT interpreted by me (1pt min.). @ -CT of the brain and C-spine interpreted by me shows no evidence of intracranial bleed, skull fracture or midline shift. No cervical spine fracture noted. U/S interpreted by me (1pt. min.). @ -None done What testing was considered but not performed or refused? (CT, X-rays, U/S, labs)? Why? @ -None What meds were considered but not given or refused? Why? @ -None Did you discuss the management of the patient with other professionals (professionals i.e. , PA, HARDWARE ASSEMBLER, lab, RT, psych nurse, director of social media marketing, video engineer, teacher, professional security officer, showcase trimmer)? Give summary @ -No Was smoking cessation discussed for >3mins.? @ -No Was critical care preformed (if so, how long)? @ -No Were there social determinants of health that impacted care today? How? (Homelessness, low income, unemployed, alcoholism, drug addiction, transportation, low edu. Level, literacy, decrease access to med. care, half-way, rehab)? @ -no Was there de-escalation of care discussed even if they declined (Discuss DNR or withdrawal of care, Hospice)? DNR status @ -No] What co-morbidities impacted this encounter? (DM, HTN, Smoking, COPD, CAD, Cancer, CVA, ARF, Chemo, Hep., AIDS, mental health diagnosis, sleep apnea, morbid obesity)? @ -GERD, hypertension, hyperlipidemia, glaucoma Was patient admitted / discharged? Hospital course, mention meds given and route, prescriptions, significant lab abnormalities, going to OR and other p ertinent info. @ -Discharged Nontoxic-appearing 72-year-old male, alert and oriented x4, presents ambulatory with complaints of tripping and falling down 12 stairs into the basement approximately 2 hours ago. Denies any loss of consciousness. Denies any blood thinners. States he hit his head, has mid/lower back, left sided hip, elbow and rib pain. Family at bedside states she observed him fall and states "he did cart wheels down the stairs". Has been ambulatory since. No nausea or vomiting. Bacitracin was placed to his elbow and facial abrasions. Tetanus was updated. Morphine was given for his pain with improvement. Radiologist interpretation chronic changes and mild cardiomegaly without suspicious of acute pulmonary process. A large hiatal hernia with air-fluid level is redemonstrated compared to 02/24/2016. No pneumothorax. Osseous structures are intact. Radiologist interpretation no acute fracture dislocation of the left hip. Radiologist interpretation no acute fracture or dislocation seen in the lumbar spine. CBC and electrolytes are unremarkable. Vital signs are stable. Patient was diagnosed mild head injury, fall and musculoskeletal pain. Directed take Tylenol or Motrin for pain increase his fluid intake and follow-up with his primary care doctor on Thursday. Strict return parameters were discussed. Patient and family member are agreeable to this plan of care. Undiagnosed new problem with uncertain prognosis? @ -[No] Drug Therapy requiring intensive monitoring for toxicity (Heparin, Nitro, Insulin, Cardizem)? @ -[No] Were any procedures done? @ -[No] Diagnosis/symptom? @ -Fall, musculoskeletal pain, abrasions, mild head injury Acute, or Chronic, or Acute on Chronic? @ -Acute Uncomplicated (without systemic symptoms) or Complicated (systemic symptoms)? @ -Uncomplicated Side effects of treatment? @ -[No] Exacerbation, Progression, or Severe Exacerbation? @ -[No] Poses a threat to life or bodily function? How? (Chest pain, [place], [place], pneumonia, PE, COPD, DKA, ARF, appy, cholecystitis, CVA, Diverticulitis, Homicidal, Suicidal, threat to staff... and all critical care pts) @ -[No] - Lab Data Result diagrams: 07/18/22 11:23 07/18/22 11:23 Lab Results 07/18/22 07/18/22 07/18/22 Range/Units 11:23 11:23 11:23 WBC 7.7 (3.8-10.6) k/uL RBC 4.99 (4.30-5.90) m/uL Hgb 16.0 (13.0-17.5) gm/dL Hct 48.7 (39.0-53.0) % MCV 97.5 (80.0-100.0) fL MCH 32.0 (25.0-35.0) pg MCHC 32.8 (31.0-37.0) g/dL RDW 13.0 (11.5-15.5) % Plt Count 158 (150-450) k/uL MPV 8.1 Neutrophils % 83 % Lymphocytes % 9 % Monocytes % 5 % Eosinophils % 2 % Basophils % 0 % Neutrophils # 6.4 (1.3-7.7) k/uL Lymphocytes # 0.7 L (1.0-4.8) k/uL Monocytes # 0.4 (0-1.0) k/uL Eosinophils # 0.2 (0-0.7) k/uL Basophils # 0.0 (0-0.2) k/uL PT 10.0 (9.0-12.0) sec INR 0.9 (<1.2) APTT 21.2 L (22.0-30.0) sec Sodium 140 (137-145) mmol/L Potassium 4.5 (3.5-5.1) mmol/L Chloride 107 (98-107) mmol/L Carbon Dioxide 25 (22-30) mmol/L Anion Gap 8 mmol/L BUN 15 (9-20) mg/dL Creatinine 0.99 (0.66-1.25) mg/dL Est GFR (CKD-EPI)AfAm 86 (>60 ml/min/1.73 sqM) Est GFR (CKD-EPI)NonAf 75 (>60 ml/min/1.73 sqM) Glucose 104 H (74-99) mg/dL Calcium 9.7 (8.4-10.2) mg/dL Total Bilirubin 0.7 (0.2-1.3) mg/dL AST 35 (17-59) U/L ALT 27 (4-49) U/L Alkaline Phosphatase 59 (38-126) U/L Total Protein 7.8 (6.3-8.2) g/dL Albumin 4.5 (3.5-5.0) g/dL Disposition Clinical Impression: Fall, Musculoskeletal pain, Mild closed head injury Disposition: HOME SELF-CARE Condition: Good Instructions (If sedation given, give patient instructions): Fall Prevention for Older Adults (ED), Head Injury (ED), Musculoskeletal Pain (ED) Additional Instructions: Take Tylenol 650mg every 6 hours and Motrin 600mg every 8 hours for pain for the next 3 days. Increase your fluid intake. Return to the emergency room with any new or concerning symptoms. Follow-up with your primary care doctor on Thursday for reevaluation. Is patient prescribed a controlled substance at d/c from ED?: No Referrals: Warner Stern MD [Primary Care Provider] - 1-2 days Time of Disposition: 12:41
--- NOTE | 2022-07-18 11:30 | XR ---
EXAMINATION TYPE: XR chest 2V DATE OF EXAM: 07/18/2022 COMPARISON: Chest x-ray February 24, 2016 HISTORY: Left-sided pain after fall injury TECHNIQUE: Frontal and lateral views of the chest are obtained. FINDINGS: There is linear bibasilar opacities favoring scarring and/or atelectasis. Large hiatal her gemini with air-fluid level is redemonstrated. The cardiac silhouette size is stable and mildly enlarged . No pneumothorax seen bilaterally. The osseous structures are intact. IMPRESSION: Chronic changes and mild cardiomegaly without suspicious acute pulmonary process.
--- NOTE | 2022-07-18 11:32 | XR ---
EXAMINATION TYPE: XR Hip Complete LT DATE OF EXAM: 07/18/2022 CLINICAL HISTORY: Pain after fall injury. TECHNIQUE: AP and frogleg views of the left hip are obtained. COMPARISON: None. FINDINGS: There is no acute fracture/dislocation evident in the left hip. Moderate axial joint space loss in the left hip. The overlying soft tissue appears unremarkable. IMPRESSION: There is no acute fracture or dislocation in the left hip.
--- NOTE | 2022-07-18 11:37 | XR ---
EXAMINATION TYPE: XR lumbosacral spine min 4V DATE OF EXAM: 07/18/2022 CLINICAL HISTORY: Fall injury with pain TECHNIQUE: Frontal, lateral, and oblique images of the lumbar spine are obtained. COMPARISON: None. FINDINGS: There are 5 lumbar type vertebral bodies identified. The lumbar spine shows satisfactory alignment without evidence of acute fracture or dislocation. Vertebral body heights and disk space he ights are within normal limits. The oblique images appear within normal limits. Mild multilevel an terior and lateral spurring. Moderate overlying arterial vascular calcification is present. IMPRESSION: No acute fracture or dislocation is seen in the lumbar spine.
--- NOTE | 2022-07-18 12:03 | CT ---
EXAMINATION TYPE: CT brain cspine wo con DATE OF EXAM: 07/18/2022 COMPARISON: CT brain February 24, 2016 HISTORY: Fall injury with headache and neck pain CT DLP: 1500.5 mGycm. Automated Exposure Control for Dose Reduction was Utilized. TECHNIQUE: CT scan of the head and cervical spine are performed without contrast. FINDINGS: There is no acute intracranial hemorrhage or midline shift identified. Mild to moderate v entricular and sulcal prominence redemonstrated. Gomez-white matter differentiation is preserved. The calvarium is intact. The globes are intact and the visualized sinuses are clear. Cervical spine is visualized in its entirety from C1 through upper thoracic levels and demonstrates l evoconvex scoliosis centered in the upper thoracic spine without evidence of acute fracture or disloc ation.. Prevertebral soft tissue appears within normal limits. The C1-C2 articulation is within nor mal limits on the coronal images. Vertebral body heights and disc space heights are maintained. Spin al canal is preserved. Axial images show some multilevel uncovertebral facet degenerative changes gre atest in the left mid cervical levels. Thyroid gland appears within normal limits. Lung apices show e mphysematous change with apical scarring but no pneumothorax. IMPRESSION: 1. There is no acute fracture or dislocation evident in the cervical spine. 2. No acute intracranial hemorrhage or midline shift is seen.
[2022-07-18 12:11] VITALS: RESP 14
[2022-07-18 12:19] LABS: Basophils % (A) 0 %; Eosinophils # (A) 0.2 k/uL (0-0.7); Eosinophils % (A) 2 %; HCT 48.7 % (39.0-53.0); Lymphocytes # (A) 0.7 k/uL (1.0-4.8); Lymphocytes % (A) 9 %; MCHC 32.8 g/dL (31.0-37.0); MCV 97.5 fL (80.0-100.0); Mean Platelet Volume 8.1; Monocytes # (A) 0.4 k/uL (0-1.0); Monocytes % (A) 5 %; Neutrophils # (A) 6.4 k/uL (1.3-7.7); Neutrophils % (A) 83 %; Platelet Count 158 k/uL (150-450); RBC 4.99 m/uL (4.30-5.90); WBC 7.7 k/uL (3.8-10.6)
[2022-07-18 12:25] LABS: Albumin 4.5 g/dL (3.5-5.0); Calcium 9.7 mg/dL (8.4-10.2); Potassium 4.5 mmol/L (3.5-5.1); Total Bilirubin 0.7 mg/dL (0.2-1.3); Total Protein 7.8 g/dL (6.3-8.2)
[2022-07-18 12:30] LABS: INR 0.9 (<1.2)
[2022-07-18 12:35] LABS: Partial Thromboplastin Time 21.2 sec (22.0-30.0)
[2022-07-18 13:05] VITALS: BP 127/77; PULSE 51; TEMP 98.2
== END 2022-07-18 13:05 | disposition home or self-care (01) ==
LOC: EC 10:35
DX: S09.90XA Unspecified injury of head, initial encounter (principal); M79.18 Myalgia, other site; I10 Essential (primary) hypertension; E78.5 Hyperlipidemia, unspecified; Z79.899 Other long term (current) drug therapy; Z87.891 Personal history of nicotine dependence; Z23 Encounter for immunization; W10.9XXA Fall (on) (from) unspecified stairs and steps, initial encounter
CPT/HCPCS: 36415; 80053; 85025; 85610; 85730; 72110; 73502; 71046; 72125; 70450; 90715; 99284; 90471; 96374; J2270

== ENCOUNTER → 2022-08-08 | Outpatient (CLI) | payer MEDICARE ==
--- NOTE | 2022-08-08 15:11 | US ---
EXAMINATION TYPE: US carotid duplex BILAT DATE OF EXAM: 08/08/2022 COMPARISON: US 2017 CLINICAL INDICATION: Male, 72 years old with history of G45.9 TIA; TECHNIQUE: Carotid duplex ultrasound examination. Indirect Doppler criteria was utilized. FINDINGS: EXAM MEASUREMENTS: RIGHT: Peak Systolic Velocity (PSV) cm/sec ----- Right CCA: 66.3 ----- Right ICA: 71.8 ----- Right ECA: 106.0 ICA/CCA ratio: 1.1 RIGHT: End Diastole cm/sec ----- Right CCA: 14.3 ----- Right ICA: 17.2 ----- Right ECA: 13.1 LEFT: Peak Systolic Velocity (PSV) cm/sec ----- Left CCA: 85.8 ----- Left ICA: 108.0 ----- Left ECA: 92.5 ICA/CCA ratio: 1.3 LEFT: End Diastole cm/sec ----- Left CCA: 18.0 ----- Left ICA: 28.3 ----- Left ECA: 12.6 VERTEBRALS (direction of flow): Right Vertebral: Antegrade Left Vertebral: Antegrade Rhythm: Normal No significant stenosis IMPRESSION: 1. No significant flow-limiting stenosis based on velocities Criteria for Assigning % of Stenosis / Diameter reduction (Estimation based on the indirect measurements of the internal carotid artery velocities (ICA PSV). 1. Normal (no stenosis)=ICA PSV < 125 cm/s: ratio < 2.0: ICA EDV<40 cm/s. 2. Less than 50% stenosis=ICA PSV < 125 cm/s: ratio < 2.0: ICA EDV<40 cm/s. 3. 50 to 69% stenosis=ICA PSV of 125 to 230 cm/s: ration 2.0 ? 4.0: ICA EDV 40-100 cm/s. 4. Greater than 70% stenosis to near occlusion= ICA PSV > 230 cm/s: ratio > 4.0: ICA EDV > 100 cm/s. 5. Near occlusion= ICA PSV velocities may be low or undetectable: variable ratio and ICA EDV. 6. Total occlusion=unable to detect flow.
== END | disposition home or self-care (01) ==
LOC: RADUSWWP 10:32
PROVIDERS: ATTEND Family Medicine
DX: G45.9 Transient cerebral ischemic attack, unspecified (principal)
CPT/HCPCS: 93880

== ENCOUNTER → 2022-08-21 | Outpatient (CLI) | payer MEDICARE ==
--- NOTE | 2022-08-22 13:00 | CA ---
Transthoracic Echo Report Name: Evangelist Quintero Age: 72 Gender: M : 1950 Exam Date: 08/21/2022 12:49 Exam Location: [facility] Ht (in): 70 Wt (lb): 210 Ordering Physician: Warner Stern MD Attending/Referring Phys: Gambling Monitor Darleen Low RDCS Procedure CPT: Indications: G45.9 Cardiac Hx: Technical Quality: Fair Contrast 1: Total Dose (mL): Contrast 2: Total Dose (mL): MEASUREMENTS (Male / Female) Normal Values 2D ECHO LV Diastolic Diameter PLAX 3.3 cm 4.2 - 5.9 / 3.9 - 5.3 cm LV Systolic Diameter PLAX 2.4 cm IVS Diastolic Thickness 1.7 cm 0.6 - 1.0 / 0.6 - 0.9 cm LVPW Diastolic Thickness 1.2 cm 0.6 - 1.0 / 0.6 - 0.9 cm LV Relative Wall Thickness 0.9 RV Internal Dim ED PLAX 3.1 cm LA Volume 43.8 cm??? 18 - 58 / 22 - 52 cm??? M-MODE Aortic Root Diameter MM 3.1 cm LA Systolic Diameter MM 3.0 cm LA Ao Ratio MM 1.0 DOPPLER AV Peak Velocity 118.1 cm/s AV Peak Gradient 5.6 mmHg AV Mean Velocity 87.7 cm/s AV Mean Gradient 3.3 mmHg AV Velocity Time Integral 24.0 cm LVOT Peak Velocity 108.1 cm/s LVOT Peak Gradient 4.7 mmHg LVOT Velocity Time Integral 24.3 cm MV Area PHT 2.5 cm??? Mitral E Point Velocity 52.4 cm/s Mitral A Point Velocity 68.1 cm/s Mitral E to A Ratio 0.8 MV Deceleration Time 302.1 ms MV E' Velocity 4.3 cm/s Mitral E to MV E' Ratio 12.3 TR Peak Velocity 271.1 cm/s TR Peak Gradient 29.4 mmHg Right Ventricular Systolic Press 33.6 mmHg FINDINGS Left Ventricle Moderately increased left ventricular wall thickness. Left ventricular cavity size normal. Normal left ventricular systolic function with no obvious regional wall motion abnormalities. Left ventricular ejection fraction is estimated at 55-60 %. Right Ventricle Normal right ventricular size and function. Right ventricular systolic pressure within normal limits. Right Atrium Normal right atrial size. Left Atrium Normal left atrial size. Mitral Valve Structurally normal mitral valve. Trace mitral regurgitation. Aortic Valve No aortic valve stenosis or regurgitation. Tricuspid Valve Structurally normal tricuspid valve. Mild tricuspid regurgitation. Pulmonic Valve Structurally normal pulmonic valve. Trace pulmonic regurgitation. Pericardium No pericardial effusion. Aorta Normal size aortic root and proximal ascending aorta. CONCLUSIONS Normal LV size and systolic function. There is mild concentric LVH. Mild mitral and tricuspid regurgitation. No pulmonary hypertension. No pericardial effusion Previewed by: Dr. Ziyad Cooper MD (Electronically Signed) Final Date: 22 August 2022 13:00
== END | disposition home or self-care (01) ==
LOC: RADECHMAIN 12:41
PROVIDERS: ATTEND Family Medicine
DX: I08.1 Rheumatic disorders of both mitral and tricuspid valves (principal); G45.9 Transient cerebral ischemic attack, unspecified
CPT/HCPCS: 93306

== ENCOUNTER → 2022-09-17 | Outpatient (CLI) | payer MEDICARE ==
--- NOTE | 2022-09-17 08:08 | MR ---
EXAMINATION TYPE: MR brain wo con DATE OF EXAM: 09/17/2022 7:39 AM COMPARISON: CT brain C-spine 07/18/2022, CT brain 02/24/2016. CLINICAL INDICATION:Male, 72 years old with history of R42; PHH, TECHNIQUE: Multi planar, multi sequence imaging was performed through the brain. No gadolinium was gi sarina. FINDINGS: The segundo-white junctions, ventricular system, and cisterns appear unremarkable. A couple of foci of high T2/FLAIR signal intensity are seen within the periventricular and subcortical white matter. Midl ine structures show no abnormality. Diffusion-weighted imaging shows no evidence of restricted diffus ion. The susceptibility weighted images do not reveal any evidence for micro-hemorrhage. Age-appropri ate cerebral volume loss. The bone marrow signal is within normal limits. The globes are unremarkable. Mild mucosal thickening of the inferior bilateral maxillary sinuses. IMPRESSION: 1. No evidence of intracranial mass or acute/subacute infarct. 2. Nonspecific white matter changes, likely secondary to small vessel ischemic disease.
== END | disposition home or self-care (01) ==
LOC: RADMRIMAIN 06:47
PROVIDERS: ATTEND Family Medicine
DX: R90.82 White matter disease, unspecified (principal); R42 Dizziness and giddiness
CPT/HCPCS: 70551

== ENCOUNTER → 2023-07-02 | Outpatient (CLI) | payer MEDICARE ==
[2023-07-02 16:15] LABS: Basophils # (A) 0.08 X 10*3/uL (0.00-0.10); Basophils % (A) 1.3 %; Eosinophils # (A) 0.41 X 10*3/uL (0.04-0.35); Eosinophils % (A) 6.8 %; HCT 49.6 % (39.6-50.0); HGB 16.1 g/dL (13.0-17.0); Lymphocytes # (A) 1.36 X 10*3/uL (0.90-5.00); Lymphocytes % (A) 22.6 %; MCH 32.8 pg (27.0-32.0); MCHC 32.5 g/dL (32.0-37.0); Mean Platelet Volume 10.8 FL (9.5-12.2); Monocytes # (A) 0.68 X 10*3/uL (0.20-1.00); Monocytes % (A) 11.3 %; NRBC Per 100 WBC 0 X 10*3/uL (0.00-0.01); Neutrophils # (A) 3.49 X 10*3/uL (1.80-7.70); Neutrophils % (A) 57.8 %; Platelet Count 167 X 10*3/uL (140-440); RBC 4.91 X 10*6/uL (4.40-5.60); RDW 12.8 % (11.5-14.5); WBC 6.03 X 10*3/uL (4.50-10.00)
[2023-07-02 16:28] LABS: ALT 26 U/L (10-49); AST 28 U/L (14-35); Albumin 4.5 g/dL (3.8-4.9); Albumin/Globulin Ratio 1.61 Ratio (1.60-3.17); Alkaline Phosphatase 51 U/L (41-126); BUN/Creat Ratio 12.27 Ratio (12.00-20.00); Blood Urea Nitrogen 13.5 mg/dL (9.0-27.0); Carbon Dioxide 19.9 mmol/L (21.6-31.8); Chloride 110 mmol/L (96-109); Globulin 2.8 g/dL (1.6-3.3); Glucose 86 mg/dL (70-110); LDL Cholesterol,Calculated 56.4 mg/dL (0.0-131.0); Potassium 4.4 mmol/L (3.5-5.5); Prostate Specific Antigen 1.59 ng/mL (0.000-6.500); Sodium 143 mmol/L (135-145); T4, Free (Free Thyroxine) 1.23 ng/dL (0.80-1.80); Total Bilirubin 0.4 mg/dL (0.3-1.2); Total Protein 7.3 g/dL (6.2-8.2)
== END | disposition home or self-care (01) ==
LOC: LABWHC1 10:32
PROVIDERS: ATTEND Family Medicine
DX: Z00.00 Encounter for general adult medical examination without abnormal findings (principal); I10 Essential (primary) hypertension; R42 Dizziness and giddiness
CPT/HCPCS: 36415; 80053; 80061; 84153; 84439; 84443; 85025

== ENCOUNTER 2024-05-31 21:53 | Emergency (ER) | payer MEDICARE ==
--- NOTE | 2024-05-31 22:33 | ED ---
URI HPI - General Chief Complaint: Dizziness Stated Complaint: AMS Time Seen by Provider: 05/31/24 22:11 Source: patient, RN notes reviewed, old records reviewed Mode of arrival: wheelchair Limitations: no limitations - History of Present Illness Initial Comments: This is a 74 male this male presents today for evaluation regards to cough patient said 3 to 4 weeks of a cough and is just getting sick of having a cough at this point. Started to take a lot of ezoq-alv-ahtcnls medications and believes he is having dreams at night difficulty sleeping at night due to the cough MD Complaint: cough -: days(s) Severity: severe Severity scale (1-10): 9 Consistency: intermittent Improves With: OTC cold medicine Worsens With: nothing Treatments Prior to Arrival: none - Related Data Home Medications Medication Instructions Recorded Confirmed Dorzolamide 2% [Trusopt 2%] 1 drops BOTH EYES BID 07/03/22 07/08/22 Irbesartan 300 mg PO QAM 07/03/22 07/03/22 Rosuvastatin [Crestor] 10 mg PO QAM 07/03/22 07/03/22 Previous Rx's Medication Instructions Recorded Omeprazole [PriLOSEC] 20 mg PO AC-BRKFST #90 cap 07/08/22 Allergies Allergy/AdvReac Type Severity Reaction Status Date / Time No Known Allergies Allergy Verified 07/18/22 10:53 Review of Systems ROS Statement: Those systems with pertinent positive or pertinent negative responses have been documented in the HPI. ROS Other: All systems not noted in ROS Statement are negative. Past Medical History Past Medical History: Eye Disorder, GERD/Reflux, Hyperlipidemia, Hypertension Additional Past Medical History / Comment(s): Food gets "stuck", glaucoma bilaterally, occasionally wheezy since starting eyegtts 2 yrs ago History of Any Multi-Drug Resistant Organisms: None Reported Past Surgical History: Orthopedic Surgery Additional Past Surgical History / Comment(s): EGD/esophageal implant/dilation, L knee arthroscopy, colonoscopies Past Anesthesia/Blood Transfusion Reactions: No Reported Reaction Additional Past Anesthesia/Blood Transfusion Reaction / Comment(s): Pt has never received blood. Past Psychological History: No Psychological Hx Reported Smoking Status: Former smoker Past Alcohol Use History: Daily Past Drug Use History: None Reported - Past Family History Mother History Unknown: Yes Family Medical History: No Reported History Additional Family Medical History / Comment(s): Pt is adopted. General Exam Limitations: no limitations General appearance: alert, in no apparent distress Head exam: Present: atraumatic, normocephalic, normal inspection Eye exam: Present: normal appearance, PERRL, EOMI. Absent: scleral icterus, conjunctival injection, periorbital swelling ENT exam: Present: normal exam, mucous membranes moist Neck exam: Present: normal inspection. Absent: tenderness, meningismus, lymphadenopathy Respiratory exam: Present: normal lung sounds bilaterally. Absent: respiratory distress, wheezes, rales, rhonchi, stridor Cardiovascular Exam: Present: regular rate, normal rhythm, normal heart sounds. Absent: systolic murmur, diastolic murmur, rubs, gallop, clicks GI/Abdominal exam: Present: soft, normal bowel sounds. Absent: distended, tenderness, guarding, rebound, rigid Extremities exam: Present: normal inspection, full ROM, normal capillary refill. Absent: tenderness, pedal edema, joint swelling, calf tenderness Back exam: Present: normal inspection Neurological exam: Present: alert, oriented X3, CN II-XII intact Psychiatric exam: Present: normal affect, normal mood Skin exam: Present: warm, dry, intact, normal color. Absent: rash Course Vital Signs 05/31/24 21:56 Temperature 98.1 F Pulse Rate 106 H Respiratory 18 Rate Blood Pressure 159/91 O2 Sat by Pulse 92 L Oximetry - Reevaluation(s) Reevaluation #1: 05/31/24 22:43 Medical records reviewed Reevaluation #2: 05/31/24 22:43 Patient symptoms unchanged Reevaluation #3: 05/31/24 22:43 Patient informed of results and questions answered Reevaluation #4: Was pt. sent in by a medical professional or institution (, PA, DIRECTOR TRANSPORTATION, urgent care, hospital, or halfway...) When possible be specific @ -no Did you speak to anyone other than the patient for history (EMS, parent, family, police, friend...)? What history was obtained from this source @ -no Did you review nursing and triage notes (agree or disagree)? Why? @ -agree Are old charts reviewed (outside hosp., previous admission, EMS record, old EKG, old radiological studies, urgent care reports/EKG's, halfway records)? Report findings @ -yes Differential Diagnosis (chest pain, altered mental status, abdominal pain women, abdominal pain men, vaginal bleeding, weakness, fever, dyspnea, syncope, headache, dizziness, GI bleed, back pain, seizure, CVA, palpatations, mental health, musculoskeletal)? @ -prior EKG interpreted by me (3pts min.). @ -yes X-rays interpreted by me (1pt min.). @ -yes negative for acute disease CT interpreted by me (1pt min.). @ -no U/S interpreted by me (1pt. min.). @ -no What testing was considered but not performed or refused? (CT, X-rays, U/S, labs)? Why? @ -none What meds were considered but not given or refused? Why? @ -none Did you discuss the management of the patient with other professionals (professionals i.e. , PA, DIRECTOR TRANSPORTATION, lab, RT, psych nurse, social work msw, environmental lawyer, teacher, traffic police officer, home health care case manager)? Give summary @ -no Was smoking cessation discussed for >3mins.? @ -no Was critical care preformed (if so, how long)? @ -no Were there social determinants of health that impacted care today? How? (Homelessness, low income, unemployed, alcoholism, drug addiction, transportation, low edu. Level, literacy, decrease access to med. care, group home, rehab)? @ -none Was there de-escalation of care discussed even if they declined (Discuss DNR or withdrawal of care, Hospice)? DNR status @ -no What co-morbidities impacted this encounter? (DM, HTN, Smoking, COPD, CAD, Cancer, CVA, ARF, Chemo, Hep., AIDS, mental health diagnosis, sleep apnea, morbid obesity)? @ -none Was patient admitted / discharged? Hospital course, mention meds given and route, prescriptions, significant lab abnormalities, going to OR and other pertinent info. @ - Undiagnosed new problem with uncertain prognosis? @ -no Drug Therapy requiring intensive monitoring for toxicity (Heparin, Nitro, Insulin, Cardizem)? @ -no Were any procedures done? @ -no Diagnosis/symptom? @ - Acute, or Chronic, or Acute on Chronic? @ -Acute Uncomplicated (without systemic symptoms) or Complicated (systemic symptoms)? @ -Complicated Side effects of treatment? @ -no Exacerbation, Progression, or Severe Exacerbation? @ -exacerbation Poses a threat to life or bodily function? How? (Chest pain, USA, SC, pneumonia, PE, COPD, DKA, ARF, appy, cholecystitis, CVA, Diverticulitis, Homicidal, Suicidal, threat to staff... and all critical care pts) @ -yes Reevaluation #5: Differential Dyspnea: Coronary syndrome, arrhythmia, tamponade, asthma, COPD, pulmonary embolism, pneumonia, pneumothorax, pulmonary effusion, anaphylaxis, diabetic ketoacidosis, flailed chest, pulmonary contusion, diaphragmatic rupture, anemia, neuromuscular, this is not meant to be an all-inclusive list. Medical Decision Making - Medical Decision Making 74 male difficulty sleeping secondary to congestion and chronic cough. X-ray is negative for pneumonia patient given cough suppressant and something to help sleep patient can be discharged home Disposition Clinical Impression: Cough, URI (upper respiratory infection) Disposition: HOME SELF-CARE Condition: Fair Instructions (If sedation given, give patient instructions): Upper Respiratory Infection (ED), Chronic Cough (ED) Is patient prescribed a controlled substance at d/c from ED?: No Referrals: Warner Stern MD [Primary Care Provider] - 1-2 days Time of Disposition: 23:00
[2024-05-31] MEDS: BENZONATATE 100 MG CAP PO STA (22:48)
[2024-05-31] MEDS: diazePAM 5 MG TAB PO STA (22:50)
--- NOTE | 2024-05-31 22:54 | XR ---
EXAMINATION TYPE: XR chest 1V portable DATE OF EXAM: 05/31/2024 10:41 PM COMPARISON: Chest radiographs from 07/18/2022 TECHNIQUE: XR chest 1V portable Portable AP radiograph of the chest. CLINICAL INDICATION:Male, 74 years old with history of cough; FINDINGS: Lungs/Pleura: There is no evidence of pleural effusion, focal consolidation, or pneumothorax. Chroni c senescent parenchymal change with bibasilar linear scarring. Scattered bilateral hilar calcified gr anulomas. Pulmonary vascularity: Unremarkable. Heart/mediastinum: Cardiomediastinal silhouette is prominent in size. Musculoskeletal: No acute osseous pathology. Other findings: Large hiatal hernia redemonstrated. IMPRESSION: 1. Chronic changes without evidence for acute process. 2. Redemonstration of large hiatal hernia. [facility], , 05/31/2024 10:52 PM
[2024-05-31 23:16] VITALS: BP 155/79; PULSE 99; RESP 20; TEMP 98.2
== END 2024-05-31 23:14 | disposition home or self-care (01) ==
LOC: EC 21:53
DX: J06.9 Acute upper respiratory infection, unspecified (principal); R05.9 Cough, unspecified; Z87.891 Personal history of nicotine dependence
CPT/HCPCS: 71045; 99284